=== PATIENT | female | born 2000 | race Caucasian/White ===

== ENCOUNTER 2018-09-09 21:58 | Emergency (ER) | payer OTHER ==
[~2018-09-09] VITALS: Ht 157.5 cm; Wt 86.2 kg
[~2018-09-09 21:58] MED LIST: ABILIFY PO; VIVANCE PO; ZOLOFT; [UNRECOGNIZED DRUG - REMARK]
[2018-09-09 22:00] VITALS: BP 151/82
[2018-09-09] MEDS ORDERED: LAMISIL AT 1% C12 G1 TOP (22:13)
== END 2018-09-09 23:00 | disposition home or self-care (01) ==
LOC: ER 21:58
DX: B35.4 Tinea corporis (principal); J45.909 Unspecified asthma, uncomplicated